=== PATIENT | female | born 1990 | race Two or more races ===

== ENCOUNTER 2018-12-15 08:37 | Inpatient (IN) | payer OTHER ==
[~2018-12-15 08:37] MED LIST: DEXTROSE 5%-LACTATED RINGERS 1,000 ML IV SCH
[2018-12-15] MEDS ORDERED: AMPICILLIN - 2 GM in SODIUM CHLORIDE 100 ML IVPB ONE (09:00)
[2018-12-15 09:49] VITALS: BMI 26.3
[2018-12-15] MEDS ORDERED: ELECTROLYTE-148 SOLN 1,000 ML IV SCH (10:00)
[2018-12-15] MEDS ORDERED: OXYTOCIN 20 UNITS in 0.9% NS 20 UNIT/1,000 ML INFUS.BAG IV ONE (10:08)
[2018-12-15] MEDS ORDERED: LIDOCAINE HCL 1% PRESERVATIVE FREE - 30ML VIAL ONE (10:08)
[2018-12-15] MEDS ORDERED: FENTANYL/BUPIVACAINE/NS/PF - PCEA - 50 ML DISP.SYRIN EP ONE (10:16)
[2018-12-15 10:24] LABS: BASO % 0.2 % (0-2.0); EOS % 0.1 % (0-4.5); HEMATOCRIT 28.1 % (32.4-45.2); HEMOGLOBIN 8.9 GM/dL (10.7-15.3); LYMPH % 6.9 % (8-40); MCH 25.1 pg (25.7-33.7); MCHC 31.6 g/dl (32.0-36.0); MEAN CELL VOLUME 79.2 fl (80-96); MEAN PLT VOLUME 9.7 fl (7.5-11.1); NEUT % 89.8 % (42.8-82.8); PLATELET COUNT 140 K/MM3 (134-434); RBC 3.55 M/mm3 (3.60-5.2); RDW 15.2 % (11.6-15.6); WHITE BLOOD COUNT 11.8 K/mm3 (4.0-10.0)
--- NOTE | 2018-12-15 10:31 | HP ---
Past Medical History - Primary Care Physician PCP:: Brooks Saba - Admission Chief Complaint: labor History Source: Patient Limitations to Obtaining History: No Limitations - Past Medical History [employer]: No: Alzheimer's, CVA, Dementia, Migraine, Multiple Sclerosis, Peripheral Neuropathy, Parkinson's, Seizure, Syncope, TIA, Vertigo, Other Cardiovascular: No: AFIB, Aneurysm, Aortic Insufficiency, Aortic Stenosis, CAD, CHF, Deep Vein Thrombosis, HTN, Hyperlipdemia, VA, Mitral Insufficiency, Mitral Stenosis, Murmur, Pulmonary Hypertension, Other Pulmonary: No: Asthma, Bronchitis, Cancer, COPD, O2 Dependent, Pneumonia, Previously Intubated, Pulmonary Embolus, Pulmonary Fibrosis, Sleep Apnea, Other Gastrointestinal: No: Ascites, Cancer, Constipation, Crohn's Disease, Diverticulitis, Diverticulosis, Esophageal Varices, Gastritis, GERD, GI Bleed, Hemorrhoids, Hiatal Hernia, Inflamatory Bowel Disease, Irritable Bowel Disease, Pancreatitis, Peptic Ulcer Disease, Ulcerative Colitis, Other Hepatobiliary: No: Cirrhosis, Cholelithiasis, Cholecystitis, Choledocholithiasis , Hepatitis A, Hepatitis B, Hepatitis C, Other Renal/: No: Renal Failure, Renal Inusuff, BPH, Cancer, Hematuria, Hemodialysis , Neurogenic Bladder, Renal Calculi, UTI, Other Reproductive: No: Ectopic , Endometriosis, Fibroids, PID, Polycystic Ovary Syndrome, Postmenopausal, Other ...: 3 ...Para: 1 ...Term: 1 ...: 0 ...Spon : 1 ...Induced : 0 ...Multiple Gestation: 0 ...LMP: 02/15/18 ... Weeks Gestation by Dates: 38.6 ...EDC by Dates: 12/23/18 ...EDC by Sono: 12/22/18 Heme/Onc: No: Anemia, B12 Deficiency, Bleeding Disorder, Cancer, Current Chemotherapy, Current Radiation Therapy, Hemochromatosis, Hypercoaguable State, Myeloproliferative Synd, Sickle Cell Disease, Sickle Cell Trait, Thrombocytopenia, Other Infectious Disease: No: AIDS, C-Diff, Herpes Zoster, HIV, MRSA, STD's, Tuberculosis, VREF, Other Psych: No: Addictions, Anxiety, Bipolar, Depression, Panic, Psychosis, Schizophrenia, Other Musculoskeletal: No: Bursitis, Chronic low back pain, Hemiparesis, Hemiplegia, Osteoarthritis, Paraplegia, Other Rheumatology: No: Fibromyalgia, Gout, Lupus, Rheumatoid Arthritis, Sarcoidosis, Vasculitis, Other ENT: No: Allergic Rhinitis, Sinusitis, Other Endocrine: No: Narciso's Disease, Gosia's Disease, Diabetes Insipidus, Diabetes Mellitus, Hyperparathyroidism, Hyperthyroidism, Hypothyroidism, Osteopenia, SIADH, Other Dermatology: No: Basal Cell, Cellulitis, Eczema, Melanoma, Psoriasis, Squamous Cell, Other - Past Surgical History Hx Myomectomy: No Hx Transabdominal Cerclage: No Additional Surgical History: abdominoplasty - Smoking History Smoking history: Never smoked Have you smoked in the past 12 months: No - Alcohol/Substance Use Hx Alcohol Use: No History of Substance Use: reports: None Home Medications - Allergies Allergies/Adverse Reactions: Allergies Allergy/AdvReac Type Severity Reaction Status Date / Time No Known Drug Allergies Allergy Verified 12/15/18 09:40 - Home Medications Home Medications: Ambulatory Orders Vit No.129/Iron/Folic [ One Daily Tablet] 1 tab PO DAILY Valacyclovir HCl [Valtrex] 1,000 mg PO DAILY 12/15/18 Family Disease History - Family Disease History Family History: Unremarkable Review of Systems Findings/Remarks: Painful contractions - Review of Systems Constitutional: reports: No Symptoms Eyes: reports: No Symptoms, Floaters HENT: reports: No Symptoms Neck: reports: No Symptoms Cardiovascular: reports: No Symptoms Respiratory: reports: No Symptoms Gastrointestinal: reports: No Symptoms Genitourinary: reports: No Symptoms Breasts: reports: No Symptoms Reported Musculoskeletal: reports: No Symptoms Integumentary: reports: No Symptoms Neurological: reports: No Symptoms Endocrine: reports: No Symptoms Hematology/Lymphatic: reports: No Symptoms Psychiatric: reports: No Symptoms Physical Exam - Maternity Constitutional: Yes: Well Nourished HENT: Yes: Atraumatic, Normocephalic Neck: Yes: Supple Cardiovascular: Yes: Regular Rate and Rhythm - Abdominal Exam/OB Number of Fetuses: Single Presentation: Vertex Contractions: Yes Regularity: Regular Monitor Mode: External Accelerations: Uniform Decelerations: None - Vaginal Exam/OB Speculum Exam: Yes Dilatation (cm): 9 Effacement (%): 90 Amniotic Membrane Status: Intact Presentation: Vertex/Position (3700g by clinical estimate) Station: -3 (asynclitic) - Physical Exam Musculoskeletal: Yes: WNL Extremities: Yes: WNL Edema: LLE: Trace, RLE: Trace Integumentary: Yes: WNL ...Motor Strength: WNL Psychiatric: Yes: Alert, Oriented - Labs Lab Results: ordered Imaging - Results Ultrasound: Report Reviewed (2 reports available on admission) Assessment/Plan 28 y/o P1 @ 39.3wk, active labor, external patient and available documentation reviewed, GBS negative, cephalic presentation, prior of 9lbs 11oz infant, reassuring status. -Admit -GBS prophylaxis -expectant management -Epidural OK, pending anesthesia evaluation
[2018-12-15 10:33] LABS: INR 0.96 (0.83-1.09); PROTHROMBIN TIME (PATIENT) 11.3 SEC (9.7-13.0)
[2018-12-15 10:39] LABS: BLOOD UREA NITROGEN 5.8 mg/dL (7-18); CREATININE 0.5 mg/dL (0.55-1.3)
[2018-12-15 10:55] LABS: POTASSIUM 2.9 mmol/L (3.5-5.1)
--- NOTE | 2018-12-15 11:17 | PN ---
Ante-Partal Exam - Subjective Subjective: Patient evaluated prior to epidural placement Vital Signs: Vital Signs Temperature 97.7 F 12/15/18 10:00 Pulse Rate 81 12/15/18 10:00 Respiratory Rate 20 12/15/18 10:00 Blood Pressure 117/69 12/15/18 10:00 O2 Sat by Pulse Oximetry (%) Bleeding: No Headache: No Visual changes: No Right upper quadrant pain: No - Contractions Contractions: Yes Regularity: Regular Intensity: Strong Monitor Mode: External - Exam during Labor Heart Rate: 120 Variability: Moderate Category: I Monitor Accelerations: Present Monitor Decelerations: None Exam: Vaginal Dilatation (cm): 9 Effacement (%): 100 Presentation: Vertex Station: -2 Remarks: asynclitic - Assessment/Plan Assessment/Plan: Epidural is ok expectant management anticipate VD
[2018-12-15] MEDS ORDERED: FENTANYL/BUPIVACAINE/NS/PF - PCEA - 50 ML DISP.SYRIN EP SCH (11:35)
[2018-12-15] MEDS ORDERED: NALOXONE HCL 0.4 MG/ML VIAL IVPUSH PRN (11:54)
[2018-12-15] MEDS ORDERED: AMPICILLIN - 1 GM in SODIUM CHLORIDE 100 ML IVPB SCH (13:00)
[2018-12-15] MEDS ORDERED: BENZOCAINE 28 GM HEMORRHOIDAL OINTMENT TP PRN (13:07)
[2018-12-15] MEDS ORDERED: WITCH HAZEL 50% (TUCKS) 40 PAD/JAR PAD TP PRN (13:07)
[2018-12-15] MEDS ORDERED: BISACODYL 10 MG SUPP.RECT RC PRN (13:07)
[2018-12-15] MEDS ORDERED: BENZOCAINE 20% 57 GM BOTTLE TP PRN (13:07)
[2018-12-15] MEDS ORDERED: OXYTOCIN 20 UNITS in 0.9% NS 20 UNIT/1,000 ML INFUS.BAG IV SCH (13:15)
[2018-12-15] MEDS ORDERED: MISOPROSTOL 100 MCG TABLET PV ONE (13:20)
--- NOTE | 2018-12-15 13:20 | PN ---
Delivery - Delivery Type of Anesthesia: Local, Epidural Episiotomy/Laceration: None (small vaginal abrasion at 7 Oclock at hymenal ring level) EBL (cc): 100 Delivery, Single - Stages of Labor Placenta: Yes: Spontaneous - Condition of Shipping Supervisor/Nnps Present: No Gender: Male Position: Left, OA - Feeding Plan Initial Plan: Exclusive throughout hospitalization Benefits of Exclusively reinforced: Yes Remarks - Remarks Remarks: 's head delivered with maternal expulsive efforts. No nuchal cord and shoulders delivered w/o difficulty. Cord clamped and cut after delay and samples for blood and gases obtained. Placenta delivered spontaneously and intact, 3VC. Exam revealed mild atony and small vaginal mucosa abrasion repaired after local with 3.0 polysorb figure of eight stitch x 2. 1000mcg misoprostol administered PA prophylactically. Excellent hemostasis and reapproximation achived. Sponge/instrument count is correct x 2
[2018-12-15] MEDS ORDERED: MISOPROSTOL 200 MCG TABLET PV ONE (13:30)
[2018-12-15] MEDS: POTASSIUM CHLORIDE 10 MEQ PREMIX IVPB (POTASSIUM RIDER) IVPB SCH ×2 (15:37→19:22)
[2018-12-15] MEDS: ACETAMINOPHEN 325 MG TABLET (FP) PO PRN (19:43)
[2018-12-15] MEDS: IBUPROFEN 600 MG TABLET (FP) PO PRN (19:44)
[2018-12-16 07:05] LABS: BASO % 0.2 % (0-2.0); EOS % 0.1 % (0-4.5); HEMATOCRIT 24.7 % (32.4-45.2); HEMOGLOBIN 7.9 GM/dL (10.7-15.3); LYMPH % 14.7 % (8-40); MCH 24.9 pg (25.7-33.7); MCHC 31.8 g/dl (32.0-36.0); MEAN CELL VOLUME 78.2 fl (80-96); MEAN PLT VOLUME 9.9 fl (7.5-11.1); MONO % 5.4 % (3.8-10.2); NEUT % 79.6 % (42.8-82.8); PLATELET COUNT 129 K/MM3 (134-434); RBC 3.16 M/mm3 (3.60-5.2); RDW 15.3 % (11.6-15.6); WHITE BLOOD COUNT 11.7 K/mm3 (4.0-10.0)
[2018-12-16] MEDS: IBUPROFEN 600 MG TABLET (FP) PO PRN (07:19)
[2018-12-16] MEDS: ACETAMINOPHEN 325 MG TABLET (FP) PO PRN (07:20)
[2018-12-16 07:47] LABS: BLOOD UREA NITROGEN 3.8 mg/dL (7-18); CALCIUM 7.9 mg/dL (8.5-10.1); CREATININE 0.5 mg/dL (0.55-1.3); POTASSIUM 3.7 mmol/L (3.5-5.1)
[2018-12-16] MEDS ORDERED: DIPHTH,PERTUSS(ACELL),TET 0.5 ML DISP.SYRIN IM ONE (10:00)
[2018-12-16] MEDS ORDERED: FERROUS SO4 325 MG TABLET (FP) PO ONE (10:06)
--- NOTE | 2018-12-16 10:10 | PN ---
Post Progress Note - Subjective Subjective: Ambulating, tolerating PO, lochia decreased, passing gas, attempting to breast feed, voiding Post Day: 1 Type of Delivery: Vital Signs: Vital Signs Temperature 98.2 F 12/16/18 07:10 Pulse Rate 72 12/16/18 07:10 Respiratory Rate 18 12/16/18 07:10 Blood Pressure 101/59 L 12/16/18 07:10 O2 Sat by Pulse Oximetry (%) 99 12/15/18 12:00 Breast Exam: Yes: Other (deferred) Uterus: Yes: Fundus Firm Abdomen/GI: Yes: Abdomen soft Lochia, amount: Moderate Extremities: Yes: Calves non-tender Activity: Ambulating - Labs Labs: CBC WBC 11.7 K/mm3 (4.0-10.0) H 12/16/18 06:32 RBC 3.16 M/mm3 (3.60-5.2) L 12/16/18 06:32 Hgb 7.9 GM/dL (10.7-15.3) L 12/16/18 06:32 Hct 24.7 % (32.4-45.2) L 12/16/18 06:32 MCV 78.2 fl (80-96) L 12/16/18 06:32 MCH 24.9 pg (25.7-33.7) L 12/16/18 06:32 MCHC 31.8 g/dl (32.0-36.0) L 12/16/18 06:32 RDW 15.3 % (11.6-15.6) 12/16/18 06:32 Plt Count 129 K/MM3 (134-434) L 12/16/18 06:32 MPV 9.9 fl (7.5-11.1) 12/16/18 06:32 Absolute Neuts (auto) 9.3 K/mm3 (1.5-8.0) H 12/16/18 06:32 Neutrophils % 79.6 % (42.8-82.8) 12/16/18 06:32 Lymphocytes % 14.7 % (8-40) D 12/16/18 06:32 Monocytes % 5.4 % (3.8-10.2) 12/16/18 06:32 Eosinophils % 0.1 % (0-4.5) 12/16/18 06:32 Basophils % 0.2 % (0-2.0) 12/16/18 06:32 Nucleated RBC % 0 % (0-0) 12/16/18 06:32 Other Findings, Remarks: All questions answered and initial circumcision counseling carried out. Patient undecided and would like to speak to FOB prior to decision making Assessment/Plan PPD # 1, doing well in stable condition, K replaced -Continue PP care -Anticipate D/C tomorrow -Possible circumcision pending patient's decision -PO iron for mild asymptomatic anemia
--- NOTE | 2018-12-16 13:39 | PN ---
Progress Note (short form) - Note Progress Note: Patient counseled along with FOB. They have decided not to proceed with infant' s circumcision at this point,
[2018-12-16] MEDS ORDERED: SENNOSIDES/DOCUSATE COMBO (SENNA PLUS) TABLET (UD) PO PRN (22:00)
[2018-12-17] MEDS: ACETAMINOPHEN 325 MG TABLET (FP) PO PRN ×2 (05:09→09:26)
[2018-12-17] MEDS: IBUPROFEN 600 MG TABLET (FP) PO PRN ×2 (05:09→09:25)
[2018-12-17 08:33] VITALS: BP 100/67; PULSE 76; TEMP 97.6
--- NOTE | 2018-12-17 09:50 | DS ---
Physical Examination Vital Signs: Vital Signs Temperature 97.6 F 12/17/18 07:50 Pulse Rate 76 12/17/18 07:50 Respiratory Rate 18 12/17/18 07:50 Blood Pressure 100/67 12/17/18 07:50 O2 Sat by Pulse Oximetry (%) 99 12/15/18 12:00 Findings/Remarks: Ambulating,tolerating Po, lochia decreased. Constitutional: Yes: Calm HENT: Yes: Atraumatic Neck: Yes: Supple Cardiovascular: Yes: Regular Rate and Rhythm Respiratory: Yes: Regular Gastrointestinal: Yes: WNL ...Rectal Exam: Yes: WNL Renal/: Yes: WNL Breast(s): Yes: WNL Musculoskeletal: Yes: WNL Extremities: Yes: WNL Edema: Yes Edema: LLE: Trace, RLE: Trace Integumentary: Yes: WNL Neurological: Yes: Alert, Oriented ...Motor Strength: WNL Psychiatric: Yes: Alert, Oriented Labs: CBC, BMP 12/16/18 06:32 12/16/18 06:32 Discharge Summary Reason For Visit: LABOR ADMISSION Mild anemia Procedures: Principal: VD Hospital Course: Uncomplicated recovery Condition: Stable - Instructions Diet, Activity, Other Instructions: Please return to regular diet and activity as tolerated. Follow up in 6-8wks for visit. Call MD with any questions or concerns Referrals: Brooks Saba MD [Staff Physician] - Disposition: HOME - Home Medications Comprehensive Discharge Medication List: Ambulatory Orders Vit No.129/Iron/Folic [ One Daily Tablet] 1 tab PO DAILY Valacyclovir HCl [Valtrex] 1,000 mg PO DAILY 12/15/18 Ferrous Sulfate [Feosol] 325 mg PO DAILY #30 tablet 12/17/18
== END 2018-12-17 14:05 | disposition home or self-care (01) | DRG 560 ==
LOC: JLDR 08:37 → J3W 15:00
PROVIDERS: ADMIT Student in an Organized Health Care Education/Training Program; ATTEND Student in an Organized Health Care Education/Training Program
PROC: 10E0XZZ Delivery of Products of Conception, External Approach (ICD-10-PCS; principal; 2018-12-15)
PROC: 0W8NXZZ Division of Female Perineum, External Approach (ICD-10-PCS; 2018-12-15)
PROC: 0UQGXZZ Repair Vagina, External Approach (ICD-10-PCS; 2018-12-15)
DX: O71.4 Obstetric high vaginal laceration alone (principal); O99.013 Anemia complicating pregnancy, third trimester; Z3A.39 39 weeks gestation of pregnancy; Z37.0 Single live birth
CPT/HCPCS: 36415; 36600; 59409; 80048; 82803; 85025; 85610; 85730; 86593; 86850; 86900; 86901; 90715